=== PATIENT | female | born 1990 | race African-American/Black ===

== ENCOUNTER 2016-12-29 07:46 | Emergency (ER) | payer OTHER ==
[~2016-12-29] VITALS: Ht 157.5 cm; Wt 100.0 kg
[2016-12-29 07:48] VITALS: BP 151/97; PULSE 87; RESP 15; TEMP 97.9; O2SAT 99
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
[2016-12-29] MEDS ORDERED: CYCL5TAB PO (08:18)
== END 2016-12-29 08:20 | disposition home or self-care (01) ==
LOC: NEPB 07:46
DX: S29.012A Strain of muscle and tendon of back wall of thorax, initial encounter (principal); S39.012A Strain of muscle, fascia and tendon of lower back, initial encounter; M62.830 Muscle spasm of back; V89.2XXA Person injured in unspecified motor-vehicle accident, traffic, initial encounter; Y92.410 Unspecified street and highway as the place of occurrence of the external cause
CPT/HCPCS: 99283